=== PATIENT | female | born 2000 | race Caucasian/White ===

== ENCOUNTER 2023-09-27 09:40 | Inpatient (IN) | payer OTHER, SELFPAY ==
[2023-09-27] VITALS (16 sets, daily range): BP systolic 75–119; BP diastolic 44–81; PULSE 63–93; RESP 14–18; TEMP 36.3–37; O2SAT 96–100; BMI 32.1
[2023-09-27] MEDS: Lactated Ringers 1,000 ML 999 ML IV ×2 (10:00→14:37)
[2023-09-27 10:40] LABS: Absolute Lymphocyte Count 1.34 X10^3/uL (0.83-4.51); Absolute Neutrophil Count 6.4 X10^3/uL (2.0-7.7); Basophil# 0.04 X10^3/uL; Basophil% 0.5 % (0-1); Eosinophil# 0.24 X10^3/uL; Eosinophils% 2.8 % (0-5); Hematocrit 34.1 % (37-47); Hemoglobin 11.1 g/dL (12.0-15.0); Lymphocyte # 1.34 X10^3/ul (0.83-4.51); Lymphocyte % 15.8 % (19-41); Mean Corp Hgb Conc 32.6 g/dL (32-36); Mean Corpuscular Hgb 26.7 pg (27.0-32.0); Mean Corpuscular Volume 82.2 fL (81-99); Mean Platelet Vol. 10.5 fl (6.2-12.0); Monocyte# 0.39 X10^3/uL; Monocyte% 4.6 % (0-10); NRBC Flagged by Analyzer 0 % (0-5); Neutrophil # 6.41 X10^3/uL (2.7-7.7); Neutrophil % 75.8 % (47-70); Platelet Count 195 K/mm3 (150-450); RBC Distribution Width CV 14.9 % (11.6-14.6); RBC Distribution Width SD 44.4 fl (35.1-43.9); Red Blood Count 4.15 M/mm3 (4.2-5.4); White Blood Count 8.5 K/mm3 (4.4-11.0)
[2023-09-27] MEDS: Lactated Ringers 1,000 ML 150 ML IV (10:40)
[2023-09-27] MEDS: Acetaminophen 500 MG Tablet 1000 MG PO ×2 (10:42→17:57)
[2023-09-27] MEDS: Cefazolin 2 GM in 0.9% Normal Saline (100mL Bag) 100 ML IV (10:43)
[2023-09-27 11:17] LABS: Syphilis Antibodies Non-reactive
[2023-09-27 11:39] LABS: HIV - WCH Non-Reactive (Nonreactive); Hepatitis C Antibody Non-Reactive (Nonreactive); Rubella IgG Reactive (Nonreactive)
--- NOTE | 2023-09-27 11:49 | PCM.HP.OB ---
HPI - General General Date of Admission: 09/27/23 Date of Service: 09/27/23 Chief Complaint: scheduled c/s HPI Narrative GAENSH ROOT, is a 23 F who presents scheduled repeat at term Maternal Data Information Final MAGGY: 10/04/23 Gestational age: 39 PFSH PFSH Medical History (Updated 09/27/23 @ 11:[address] Dixie Hernandez MD) Chlamydia infection affecting Trauma Thyroid disorder Depression Anxiety Allergy/AdvReac Type Severity Reaction Status Date / Time No Known Allergies Allergy Verified 09/27/23 09:40 Surgical History (Updated 09/27/23 @ 11:[address] Dixie Hernandez MD) Previous section Social History Smoking Status: Former smoker History Elective abortions Hx Para 1 Spontaneous abortions Hx # Term Pregnancies Ectopic pregnancies Hx # Pregnancies Multiple births # of living children NST FHR Rate Baby A Baseline: 130 FHR Category:: Category I ROS Constitutional Constitutional: Denies fatigue, fever(s) or malaise Eyes Eyes: Denies change in vision ENT HEENT: Denies dizziness or headache(s) Cardiovascular Cardiovascular: Denies chest pain, dyspnea or lightheadedness Respiratory/Chest Respiratory/Chest: Denies cough or dyspnea Gastrointestinal Gastrointestinal: Denies change in bowel habits Genitourinary Genitourinary: Denies burning urination or genital lesions Integumentary Integumentary: Denies rash Neurologic Neurologic: Denies confusion, dizziness, headache(s), numbness or weakness Vital Signs Vital Signs Vital Signs: 09/27/23 10:05 Temperature 97.8 F Temperature Source Temporal Pulse Rate 93 Respiratory Rate 14 Blood Pressure 115/73 Blood Pressure Mean 87 Blood Pressure Source Monitor Blood Pressure Position Semi-Fowlers Blood Pressure Location Right Arm Pulse Ox 99 Oxygen Delivery Method Room Air Weight Weight: 80.91 kg Body Mass Index (BMI) 32.1 Physical Exam Const alert and no apparent distress General Appearance: cooperative HEENT normocephalic Resp normal respiratory effort GI soft to palpation GI Narrative: gravid, nontender, appropriate for gestational age Extremity no calf tenderness General Extremity: edema Skin no wounds Rashes: No rashes noted Psych activity/motor behavior normal Labs Labs Labs: Blood Type B POSITIVE Antibody Screen NEGATIVE Hct 34.1 % (37-47) L Hgb 11.1 g/dL (12.0-15.0) L Syphilis Total Ab Non-reactive Rubella IgG Antibody Reactive (Nonreactive) Hep Bs Antigen Pending Hepatitis C Antibody Non-Reactive (Nonreactive) HIV 1&2 Antibody Non-Reactive (Nonreactive) Assessment & Plan (1) 39 weeks gestation of : (2) Previous section complicating : PLAN: Plan Repeat
--- NOTE | 2023-09-27 12:49 | EX.PCM.OBRPT ---
Assessment & Plan (1) Previous section complicating : (2) 39 weeks gestation of : (3) Status post repeat low transverse section: Maternal Data Information Final MAGGY: 10/04/23 Gestational age: 39 Details Operative Information Date of Procedure: 09/27/23 Pre-Operative Diagnosis: previous Post-Operative Diagnosis: same Indications for : Repeat Elective Indications Narrative: Previous desires repeat Classification: Scheduled Procedure Type: low transverse push bench operator helper #1: Eliz Stallworth Type of Anesthesia: Spinal Anesthesiologist: Ross Leroy Antibiotic Given: Ancef 2 grams IV x1 Drain: Romero to straight drain Estimated Blood Loss: 500 cc Procedure Start Time: 12:18 Procedure Stop Time: 12:50 Time of Delivery: 12:23 Findings Description of Procedure: Patient taken to the OR and spinal anesthesia placed without difficulty. She was placed in a dorsal supine position with a leftward tilt. A Romero was placed. She was prepped and draped in the normal sterile fashion. Anesthesia was found to be adequate. A Pfannenstiel incision was made following the previous scar. The incision was taken down the the underlying fascia with the Bovie. The fascia was incised in the midline and extended laterally with Desir scissors. The muscle were divided in the midline and the peritoneum entered bluntly. The bladder blade was placed. A bladder flap was created. A low transverse incision was made in the lower uterine segment and extended bluntly. The head was elevated and delivered through the incision without difficulty. The remainder if the infant was delivered. She cried upon delivery. Delayed cord clamping was performed. The cord was clamped and cut and the infant handed to the nurses. The placenta was delivered and the uterus exteriorized. The uterus was cleared of clot and debris. The incision was repaired in 2 layers with 1-0 Vicryl. The uterus was returned to the abdomen. The gutters were cleared of clots. The peritoneum was closed with 3-0 Monocryl. The fascia was closed with 1-0 Vicryl. The skin was reapproximated with 2-0 Monocryl and the skin closed with 4-0. All sponge lap and needle counts were correct. Presentation: Positive for Vertex and FRANCIS Amniotic Membrane Rupture Type: Artificial Time of Membrane Ruptured: 1222 Amniotic Fluid Description: Clear Placental Delivery Description: Expressed Placenta Disposition: [facility] Cord Vessel Description: 3 Vessels Cord Entanglement: None Infant A Gender: Female (1 minute): 8 (5 minute): 9 Delayed Cord Clamping: Yes Complications Risks of Surgery Discussed w/Patient: Bleeding, Infection and Injury to surrounding structure(s) including bowel and bladder Complications: none Admit VTE Documentation VTE Present on Admission: No VTE Mechan Device Prophylaxis: SCD's VTE Pharm Prophylaxis Ordered: No
[2023-09-27] MEDS: Oxytocin 15 Units/NS 250ml 15 UNITS/250 ML IV.SOLN 83 UNITS IV (13:05)
[2023-09-27] MEDS: Ketorolac 30 MG/ML Syringe IV ×2 (13:46→20:51)
--- NOTE | 2023-09-27 14:42 | NURSING ---
Pt bp low. Giving 1L bolus of LR to boost BP at this time. Pt denies any symptoms.
[2023-09-27] MEDS: Lactated Ringers 1,000 ML 100 ML IV (16:13)
[2023-09-28] MEDS: Acetaminophen 500 MG Tablet 1000 MG PO ×3 (00:03→14:02)
[2023-09-28] MEDS: SimETHICONE 80 MG Chewable Tablet PO ×3 (00:06→14:02)
[2023-09-28 03:08] VITALS: BP 102/53; PULSE 70; RESP 18; O2SAT 98
[2023-09-28] MEDS: Ketorolac 30 MG/ML Syringe IV ×2 (03:14→09:35)
[2023-09-28 05:59] LABS: Hematocrit 31.3 % (37-47); Hemoglobin 10.1 g/dL (12.0-15.0); Mean Corp Hgb Conc 32.3 g/dL (32-36); Mean Corpuscular Hgb 26.7 pg (27.0-32.0); Mean Corpuscular Volume 82.8 fL (81-99); Mean Platelet Vol. 10.2 fl (6.2-12.0); Platelet Count 177 K/mm3 (150-450); RBC Distribution Width SD 45.1 fl (35.1-43.9); Red Blood Count 3.78 M/mm3 (4.2-5.4); White Blood Count 15.1 K/mm3 (4.4-11.0)
[2023-09-28] MEDS: Levothyroxine 50 MCG Tablet PO (06:14)
--- NOTE | 2023-09-28 06:24 | PN.OBGYN_ITS ---
Subjective Subjective Doing well. Anesthesia starting to wear off but pain tolerable. Voiding and ambulating with of difficulty. Breast feeding. Objective Data Objective Data Vital Signs: Vital Signs Temp Pulse Resp BP Pulse Ox O2 Del Method 97.6 F L 70 18 102/53 L 98 Room Air 09/27/23 20:47 09/28/23 03:08 09/28/23 03:08 09/28/23 03:08 09/28/23 03:08 09/28/23 03:08 Oxygen Delivery Method Room Air Weight: 80.91 kg Body Mass Index (BMI) 32.1 Intake & Output: Intake and Output for Last 24 Hours 09/26/23 09/27/23 09/28/23 23:59 23:59 23:59 Intake Total 4645.0 / 4645.0 Output Total 1700 / 1700 500 / 500 Balance 2945.0 / 2945.0 -500 / -500 Lab / Micro Data 09/28/23 05:45 Labs: Laboratory Results - last 24 hr 09/27/23 10:00: WBC 8.5, RBC 4.15 L, Hgb 11.1 L, Hct 34.1 L, MCV 82.2, MCH 26.7 L, MCHC 32.6, RDW Std Deviation 44.4 H, RDW Coeff of Mickie 14.9 H, Plt Count 195, MPV 10.5, Immature Gran % (Auto) 0.500, Neut % (Auto) 75.8 H, Lymph % (Auto) 15.8 L, Warren % (Auto) 4.6, Eos % (Auto) 2.8, Baso % (Auto) 0.5, Absolute Neuts (auto) 6.4, Absolute Lymphs (auto) 1.34, Nucleated RBC % 0, Syphilis Total Ab Non-reactive, Hepatitis C Antibody Non-Reactive, HIV 1&2 Antibody Non-Reactive, Rubella IgG Antibody Reactive, Blood Type B POSITIVE, Antibody Screen NEGATIVE 09/28/23 05:45: WBC 15.1 H, RBC 3.78 L, Hgb 10.1 L, Hct 31.3 L, MCV 82.8, MCH 26.7 L, MCHC 32.3, RDW Std Deviation 45.1 H, RDW Coeff of Mickie 15.0 H, Plt Count 177, MPV 10.2 ROS Constitutional Constitutional: Reports systems reviewed and no addt'l complaints, except as documented Cardiovascular Cardiovascular: Denies chest pain Respiratory/Chest Respiratory/Chest: Denies dyspnea Gastrointestinal Gastrointestinal: Denies nausea or vomiting Genitourinary Genitourinary: Denies urinary hesitancy Neurologic Neurologic: Denies systems reviewed and no addt'l complaints, except as documented Physical Exam Const alert General Appearance: cooperative GI GI Narrative: soft, moderate distention, fundus firm, appropriately tender. Abdominal bandage clean dry and intact Assessment & Plan (1) Status post repeat low transverse section: PLAN: Plan Discharge home
--- NOTE | 2023-09-28 06:41 | DS.PCM_ITS ---
Providers Date of Admission: 09/27/23 Date of Discharge: 09/28/23 Primary Care Physician: Dr. Emilee Maguire MD Reason For Visit: REPEAT C SECTION Diagnosis Discharge Diagnosis (1) Status post repeat low transverse section: Status: Acute Code(s): Z98.891 - History of uterine scar from previous surgery Plan Discharge home Medications at Discharge Home Medications cetirizine 10 mg tablet (24Hour Allergy) 10 mg PO DAILY PRN allergy symptoms 09/27/23 levothyroxine 50 mcg tablet 50 mcg PO DAILY hypothyroid 09/27/23 vit no.95-ferrous fumarate 28 mg-folic acid 800 mcg tablet () 1 tab PO DAILY 09/27/23 ibuprofen 600 mg tablet 600 mg PO Q6H #30 tabs 09/28/23 oxycodone 5 mg tablet 5 mg PO Q6H 5 days #20 tabs 09/28/23 Hospital Course Operations section Procedures None Summary of Care Provided Minutes Spent on Discharge: 22 Hospital Course: Admitted for repeat . Delivered without complication. Breast feeding. No issues Physical Exam Const alert General Appearance: cooperative GI GI Narrative: soft, moderate distention, fundus firm, appropriately tender. Abdominal bandage clean dry and intact Weight / BMI Weight Weight: 80.91 kg Body Mass Index (BMI) 32.1 ABG / Lab / Microbiology Data 09/28/23 05:45 Laboratory: Laboratory Results - last 24 hr 09/27/23 10:00: WBC 8.5, RBC 4.15 L, Hgb 11.1 L, Hct 34.1 L, MCV 82.2, MCH 26.7 L, MCHC 32.6, RDW Std Deviation 44.4 H, RDW Coeff of Mickie 14.9 H, Plt Count 195, MPV 10.5, Immature Gran % (Auto) 0.500, Neut % (Auto) 75.8 H, Lymph % (Auto) 15.8 L, [place] % (Auto) 4.6, Eos % (Auto) 2.8, Baso % (Auto) 0.5, Absolute Neuts (auto) 6.4, Absolute Lymphs (auto) 1.34, Nucleated RBC % 0, Syphilis Total Ab Non-reactive, Hepatitis C Antibody Non-Reactive, HIV 1&2 Antibody Non-Reactive, Rubella IgG Antibody Reactive, Blood Type B POSITIVE, Antibody Screen NEGATIVE 09/28/23 05:45: WBC 15.1 H, RBC 3.78 L, Hgb 10.1 L, Hct 31.3 L, MCV 82.8, MCH 26.7 L, MCHC 32.3, RDW Std Deviation 45.1 H, RDW Coeff of Mickie 15.0 H, Plt Count 177, MPV 10.2 D/C Instructions Discharge Diet: No restrictions May resume sexual activity in: 4-6 weeks Lifting Restrictions: 20 pounds Additional Activity Instructions: Nothing in the vagina for 4-6 weeks. You may return to work/school in 6 weeks. Call your doctor if your incision/area has: Continuous Slow Oozing, Sudden Increased Bleeding, Increased Pain/ Swelling, Increased Redness and Foul Smelling Discharge Call your doctor if you observe: Fever of 101 or Higher and Using more than 1 pad per hour (for 2 hours) Suture Line Care: Avoid Pulling/Pushing and Avoid Pinching/Bending Cleanse incision/area with: Keep Dressing Clean & Dry Please Follow Up With: Shelby Blanco MD When: Call to make an appointment for an incision check in 1-2 [phone]. You will need a post check in 6 weeks. Meaningful Use Info Meaningful Use Meaningful Use Diagnoses (Choose all that apply): None applicable Ischemic Stroke Statin Dosing Therapy Reference: STATIN DOSE THERAPY REFERENCE: * Patients > 75 years receive moderate or high dose statin therapy. * Patients 75 years or YOUNGER should receive HIGH intensity statin dose unless contraindicated. You will be required to document reason for non-treatment if statin daily dose does not meet guidelines. HIGH DOSE STATIN THERAPY DAILY Atorvastatin > than or = to 40 mg Rosuvastatin > than or = to 20 mg Amlodipine + Atorvastatin > than or = to 2.5/40 mg Ezetimibe + Simvastatin 10/80 mg Simvastatin 80mg Discharge Plan Admission Admit Date/Time: 09/27/23 09:40 Primary Reason for Your Visit: Repeat Attending Provider: Dixie Hernandez Primary Care Provider: Emilee Maguire Discharge Orders/Prescriptions Prescriptions: New ibuprofen 600 mg Tablet 600 mg PO Q6H Qty: 30 0RF oxycodone 5 mg Tablet 5 mg PO Q6H 5 Days Qty: 20 0RF Continued levothyroxine 50 mcg tablet 50 mcg PO DAILY PNV cmb#95-ferrous fumarate-FA [] 28 mg iron- 800 mcg tablet 1 tab PO DAILY cetirizine [24Hour Allergy] 10 mg tablet 10 mg PO DAILY PRN (Reason: allergy symptoms) Referrals / Follow Up: Emilee Maguire MD [Primary Care Provider] - Disposition Disposition (needs filled in before D/C Order can be placed): Home, Self Care
[2023-09-28 08:09] VITALS: BP 94/51; PULSE 70; RESP 16; TEMP 36.6; O2SAT 98
[2023-09-28] MEDS: Senna/Docusate Sodium 1 Tablet PO (09:35)
[2023-09-28] MEDS: 0.9% Saline Lock 10 ML Syringe IV (09:35)
--- NOTE | 2023-09-28 13:24 | CASEMGMT ---
Social Work Assessment Labor and Delivery Unit Patient Address:[address] [place] [address] [place] [address] Phone number: [phone] Date of Referral: 09/27/23 Time of Referral:? [id number] Referred By: Dixie Hernandez Date of Intervention: ?09/28/23? Time of Intervention:? 1245 Reason for Referral:? history of anxiety and depression Sw completed chart review and acknowledges social work consult due to maternal mental health. Sw presented to bedside and introduced self to mother of baby (MOB- [place]) and father of baby (FOB- Adonis). Sw explained reason for sw involvement and completed psychosocial assessment. History obtained from: medical records, MOB and FOB Household composition: Currently residing in the family home is ANNA SUNSHINE, their three year old son- Howie and now baby when discharged. Parents deny any issues or concerns with their current housing. Patient's parent/guardian status:? ?BITA states that she and ANNA have been together for 4/5 years. They met at college. BITA denies any domestic violence or intimate partner violence. Medical History: ?BITA is 1, para 1-now 2 following labor and deliery of . BITA received routine care during with [facility]. BITA presented to hospital for scheduled repeat at 39 weeks gestation on 09/27/23. Baby girl, named Jose Lee, was born weighing 7lb 2oz with apgars of 8 and 9 at one and five minutes of life respectfully. BITA is working on breast feeding with baby and states that she will follow up with outpatient if she needs ongoing assistance. Baby will be followed by Dr. Reynoso for pediatrics. Educational Status:? Both parents obtained college degrees. No concerns with reading, learning or comprehension. 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 Supplies:?? Parents have obtained all necessary baby supplies, including: car seat, safe sleep space, clothes, diapers and wipes. Childcare/Caregiver(s):? MOB will be the primary caregiver to baby along with FONehal when he is not working. Transportation:?? Both parents have their drivers license and reliable means of transportation. Programs/Agencies Involved: ???Parents are not connected to any community resources that aide them financially at this time. Children Services/Legal Issues:??? No history of children services involvement, no issues or concerns warranting referral to be made at this time. Behavioral Health Issues: ??Mental Health History: ANNA denies mental health history. BITA disclosed that she has been diagnosed with anxiety and depression. BITA states that she will get anxious about something, and as a result her chest will get tight and then she thinks that she is going to because her chest hurts and as a result she has anxiety. BITA states that it is a repetitive cycle. BITA states that she did start medication to help her after her son was born. BITA reports to being prescribed trazodone. BITA states that she stopped the medication when she learned she was with baby. MOB states that now that baby is born she wants to follow up with [facility]. BITA states that she did have consistent intrusive anxious thoughts after her son was born, and this is what caused her to start the medication. BITA states that she never looked back and realized that she was experiencing anxiety because anxiety is something that she has always struggled with. Substance Use History:?Parents deny any substance prior to and during . ? Family History:??Parents deny mental health and substance use history with their family. ??? Drug Screens: No drug screens observed in chart review. ?? Family/Social Stressors:? Parents deny any issues, concerns or stressors at this time. Support Systems: BITA states that ANNA, her mom and paternal grandpa are their biggest supports at this time. Depression/Shaken Baby/Safe Sleeping:? Ubaldo educated parents on signs and symptoms of baby blues and depression and anxiety. Parents express understanding. FOB states that he would be able to recognize if BITA were struggling with her mental health and he would know how to help and support her. Ubaldo educated parents on shaken baby prevention and ABCs of safe sleep. ASSESSMENT:? MOB and baby are admitted to labor and delivery following delivery of baby. MOB was observed to provide loving and appropriate hands on care of baby. FOB was observed to be a positive support for MOB. Parents have obtained all necessary baby items and have natural supports in place. BITA has a history of mental health but has resources that she is able to get connected to, which she states that she has intentions of doing. PLAN:? MOB and baby to be discharged when medically ready. ?No other services requested or indicated. Christine Lares, CLINICAL ACCOUNT SPECIALIST, SOFT TILE SETTER
[2023-09-28 14:00] VITALS: BP 109/59; PULSE 70; RESP 16; TEMP 36.3; O2SAT 96
[2023-09-28 14:39] LABS: Hepatitis B Surface Antigen Non-Reactive (Nonreactive)
[2023-09-28] MEDS: Ibuprofen 600 MG Tablet PO (15:38)
[2023-09-28 19:07] LABS: HCV Quant. RNA PCR <15 IU/mL (.)
[2023-09-29 05:07] LABS: HEPATITIS B SURFACE AG Negative (Negative)
--- NOTE | 2023-10-02 15:15 | NURSING ---
Follow up phone call made. Doing well since being home, only having minimal pain. Taking Tylenol and Advil for discomfort. Denies any headaches, visual disturbances, or Baby Blues since being home. Started pumping and bottle feeding and Kinkaid seems to be doing much better. Pumping every 2-3 hours, and Kinkaid is taking about 2 oz per feed. Loved all of her nurses while she was here, no questions at this time.
== END 2023-09-28 16:30 | disposition home or self-care (01) | DRG 788 ==
PROVIDERS: Admitting Provider Obstetrics & Gynecology; PCP Pediatrics; Visit Provider Obstetrics & Gynecology
PROC: 10D00Z1 Extraction of Products of Conception, Low, Open Approach (ICD-10-PCS; CPT 59514; principal; 2023-09-27 11:45)
DX: O34.211 Maternal care for low transverse scar from previous cesarean delivery (principal); Z37.0 Single live birth; Z87.891 Personal history of nicotine dependence; Z3A.39 39 weeks gestation of pregnancy
CPT/HCPCS: 59025; 59050; 85025; 85027; 86703; 86707; 86762; 86780; 86803; 86850; 86900; 86901; 87340; 87350; 87522; 99221; A4216; G0378; J2405